=== PATIENT | male | born 1960 | race Caucasian/White ===

== ENCOUNTER 2020-09-14 09:38 | Outpatient (CLI) | payer OTHER, SELFPAY ==
[2020-09-14 21:10] LABS: COVID-19 RT-PCR UVMMC Result Negative (Negative)
== END 2020-09-14 09:58 ==
PROVIDERS: Visit Provider Student in an Organized Health Care Education/Training Program
DX: Z11.52 Encounter for screening for COVID-19 (principal); Z01.818 Encounter for other preprocedural examination
CPT/HCPCS: U0003

== ENCOUNTER 2020-09-16 09:50 | Day surgery (SDC) | payer OTHER, SELFPAY ==
[2020-09-16] VITALS (8 sets, daily range): BP systolic 91–137; BP diastolic 55–98; PULSE 47–66; RESP 14–17; TEMP 36–36.3; O2SAT 94–97
--- NOTE | 2020-09-16 07:45 | PDOC.DSDIS_ITS ---
Documented by User: Antonieta Pascual 09/16/20 07:48 Discharge Plan Disposition Patient Disposition: HOME Condition: Good Discharge Details Reason For Visit: Right knee internal derangement and loose body Attending Provider: Norm Nielson Primary Care Provider: Anahy,Local Home Meds and New Rx's Prescriptions: New hydrocodone-acetaminophen 5-325 mg tablet 1 tab PO Q6H PRN (Reason: severe pain) Qty: 4 RF: 0 acetaminophen 500 mg tablet 500 mg PO Q6H PRN (Reason: pain) Qty: 60 RF: 2 ibuprofen 600 mg tablet 600 mg PO TID PRN (Reason: pain) Qty: 60 RF: 2 Continued lisinopril 40 mg tablet 40 mg PO DAILY RF: 0 magnesium 200 mg tablet 400 mg PO DAILY RF: 0 Discharge Instructions Additional Instructions: You may take just Ibuprofen and Acetaminophen for pain control. 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 Stand Alone Forms: [facility] Knee Arthroscopy Equipment/Supplies: Partial Weight Bearing Crutches Activity:: Elevate Remove Dressings/Wound Care:: 72 hours Shower/Bathe:: 72 hours Diet:: As Tolerated Discharge Orders Discharge Orders: Discharge Order (Routine); Ordered 09/16/20 Ordered By: Antonieta Pascual DS: Diagnosis Discharge Diagnosis (1) Tear of medial meniscus of right knee: Status: Acute (2) Loose body of right knee: Status: Acute Documented by User: Norm Nielson MD 09/16/20 12:28 Discharge Plan Disposition Patient Disposition: HOME Condition: Good Discharge Details Reason For Visit: Right knee internal derangement and loose body Attending Provider: Norm Nielson Primary Care Provider: Anahy,Local Home Meds and New Rx's Prescriptions: New hydrocodone-acetaminophen 5-325 mg tablet 1 tab PO Q6H PRN (Reason: severe pain) Qty: 4 RF: 0 acetaminophen 500 mg tablet 500 mg PO Q6H PRN (Reason: pain) Qty: 60 RF: 2 ibuprofen 600 mg tablet 600 mg PO TID PRN (Reason: pain) Qty: 60 RF: 2 Continued lisinopril 40 mg tablet 40 mg PO DAILY RF: 0 magnesium 200 mg tablet 400 mg PO DAILY RF: 0 Discharge Instructions Additional Instructions: You may take just Ibuprofen and Acetaminophen for pain control. 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 Stand Alone Forms: [facility] Knee Arthroscopy Equipment/Supplies: Partial Weight Bearing Crutches Activity:: Elevate Remove Dressings/Wound Care:: 72 hours Shower/Bathe:: 72 hours Diet:: As Tolerated Discharge Orders Discharge Orders: Discharge Order (Routine); Ordered 09/16/20 Ordered By: Antonieta Pascual
[2020-09-16] MEDS: Celecoxib 200 MG CAP 400 MG PO (10:22)
[2020-09-16] MEDS: Acetaminophen 500 MG TAB 1000 MG PO (10:22)
[2020-09-16] MEDS: Lactated Ringers 1,000 ML 80 ML IV (10:33)
[2020-09-16] MEDS: ceFAZolin 2 GM/50 ML BAG IVPB (12:19)
[2020-09-16] MEDS: Bupivacaine 0.5% Pres-Free 30 ML VIAL (12:47)
--- NOTE | 2020-09-17 07:01 | ROE_ITS ---
Date of service: 09/16/20 Time of Service: 13:01 Operative Note Operative Note DATE OF PROCEDURE: 09/17/20 PRE-OP DIAGNOSIS: Right Knee Medial Meniscus Tear and Loose Body POST-OP DIAGNOSIS: same PROCEDURE: Right Knee Arthroscopic Partial Medial Menisectomy and Removal of Loose Body through Separate Incision SURGEON: Norm Nielson ANESTHESIA: GETA ESTIMATED BLOOD LOSS: 5 PATHOLOGY: none sent TOURNIQUET TIME: 0 COMPLICATIONS: None Patient was transported to: PACU Patient's condition: stable Indications: I have seen Bossman in clinic for symptoms of a meniscus tear and a loose body. This was confirmed based on MRI and exam findings performed at the OR. He was referred to me by the OR due to their operating room is being closed, but already booked for surgery. Nonoperative measures were exhausted but disability and pain persisted. I discussed knee arthroscopy with meniscal intervention with the patient. I reviewed the risks of the procedure to include, but not limited to, bleeding, infection, pain, stiffness, damage to nerves or vessels, recurrence, blood clot. Despite these risks, the patient elected to proceed. 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 The consent was reviewed with the patient and signed. The history and physical was updated. All questions were answered. Bossman was taken back to the operating room. The patient was placed into the supine position on the operating room table. A nonsterile tourniquet was placed high onto the leg but not used. All bony prominences were well padded. Prophylactic antibiotics in the form of Cefazolin were administered. The right leg was then prepped with Chloraprep and draped in a standard fashion with stockinette and extremity drape. A timeout to confirm correct identity, side and site, procedure, allergies, anesthesia, and medical concerns was performed. The leg was placed into a pneumatic leg benavides, [id number]. A standard lateral portal was made at the lateral border of the patella tendon in line with the inferior pole of the patella, soft spot. The skin and deep tissue was incised sharply and the blunt trochar was inserted atraumatically. A diagnostic arthroscopy was performed and the findings are listed above. The suprapatellar pouch had moderate inflammatory change. The patellofemoral articulation showed some grade II chondromalacia with focal grade 3 changes but with good tracking. The lateral gutter had a large ovoid loose body, proximal in 1 cm in diameter, and the medial gutter had no loose bodies. Given the location and the size loose body, made a separate superolateral incision. We will keep the scope against loose body in the lateral gutter I brought in a grasper from this superolateral incision site to remove the loose body. It was removed through the separate incision without difficulty. It was noted to be just over a centimeter in size with a smooth surface and mostly bony composition. The knee was then brought into some valgus stress in extension to open the medial compartment. A medial portal was made, localized by a spinal needle. The portal was created with an #11 blade through skin and capsule under direct visualization avoiding any meniscal injury. A probe was then inserted into the medial compartment. The medial compartment was fully inspected. The chondral surface of the tibia showed mild grade I chondromalacia and the surface of the femur showed more global grade II chondromalacia with a small area of near full- thickness loss, grade 3/4. The medial meniscus had an undersurface tear at the level of the posterior horn. After evaluation, the meniscus was debrided down to a stable base using a series of biters and arthroscopic tray. It was probed afterwards to confirm that the tear had been removed and the meniscus was stable. Cartilage surfaces were debrided of any flaps, leaving any intact fibers. The notch was then inspected which showed an intact ACL and an intact PCL. The leg was then brought into a figure of 4 position. The lateral compartment was fully inspected with the arthroscope and a probe. The chondral surface of the lateral femur showed no significant chondromalacia. The chondral surface of the lateral tibia showed no significant chondromalacia. The lateral meniscus had no meniscal tear. The arthroscope was brought back into the suprapatellar pouch and the leg was in full extension. The knee was thoroughly irrigated with the arthroscopic fluid on high flow and pressure. Inflow was stopped and excess fluid was removed. The wounds were closed with 4-0 Nylon. They were dressed with Xeroform, 4x4 gauze, ABD pad, Kerlix and an UBALDO wrap. A cryo-cuff was applied. The patient tolerated the procedure well and was returned to the Same Day Surgery area in a stable condition suffering no known complication.
== END 2020-09-16 15:30 | disposition home or self-care (01) ==
LOC: SUR 09:50
PROVIDERS: Visit Provider Student in an Organized Health Care Education/Training Program
PROC: (CPT 29870; principal; 2020-09-16 14:15)
DX: S83.241A Other tear of medial meniscus, current injury, right knee, initial encounter (principal); M23.41 Loose body in knee, right knee; M94.261 Chondromalacia, right knee; X58.XXXA Exposure to other specified factors, initial encounter
CPT/HCPCS: 27331; 29881; J0690; J1100; J1885; J2001; J2405; J2704